=== PATIENT | male | born 1970 | race Caucasian/White ===

== ENCOUNTER 2017-05-18 09:31 | Emergency (ER) | payer OTHER ==
[~2017-05-18] VITALS: Ht 195.6 cm; Wt 113.0 kg
[2017-05-18 09:34] VITALS: Ht 195.6 cm; Wt 113.0 kg
[2017-05-18] MEDS ORDERED: SOD CHLORIDE 0.9% 500 ML IV STA (09:52)
[2017-05-18] MEDS ORDERED: HYDROmorphONE 1 MG/ML SYG IV STA (09:52)
[2017-05-18] MEDS ORDERED: ONDANSETRON 4 MG INJ ONE (09:54)
[2017-05-18] MEDS ORDERED: HYDROmorphONE 1 MG/ML SYG ONE (09:54)
[2017-05-18] MEDS ORDERED: ONDANSETRON 4 MG INJ IV STA (10:08)
--- NOTE | 2017-05-18 10:26 | RADRPT ---
PROCEDURE: XR Chest. CLINICAL INDICATION: Abdominal pain TECHNIQUE: Single frontal view of the chest was obtained COMPARISON: None FINDINGS: The heart and mediastinum are within normal limits. The lungs are clear. There is no pleural effusion or pneumothorax. RPTAT: AA IMPRESSION: No acute disease. .Onur Brock MD, Date Time Electronically viewed and signed by .Onur Brock MD, on 05/18/2017 10:26 .S/
[2017-05-18 10:30] LABS: BASOPHILS % 0.3 % (0.0-2.0); EOSINOPHILS # 0.1 10^3/ul (0.0-0.5); EOSINOPHILS % 2.4 % (0.0-7.0); HEMOGLOBIN 15.4 g/dl (14.0-18.0); LYMPHOCYTES # 1.8 10^3/ul (0.8-2.9); LYMPHOCYTES % 30.5 % (15.0-51.0); MEAN CORPUSCULAR HEMOGLOBIN 30.7 pg (29.0-33.0); MEAN CORPUSCULAR HGB CONC 34.2 g/dl (32.0-37.0); MEAN CORPUSCULAR VOLUME 89.6 fl (82.0-101.0); MEAN PLATELET VOLUME 9.7 fl (7.4-10.4); MONOCYTE # 0.5 10^3/ul (0.3-0.9); NEUTROPHIL # 3.3 10^3/ul (1.6-7.5); NEUTROPHILS % 56.9 % (39.0-77.0); PLATELET COUNT 269 10^3/UL (140-415); RED BLOOD COUNT 5.02 10^6/ul (4.70-6.10); RED CELL DISTRIBUTION WIDTH 12.5 % (11.5-14.5); WHITE BLOOD COUNT 5.9 10^3/ul (4.8-10.8)
[2017-05-18 10:49] LABS: INR 0.87; PROTIME 11.9 Sec (11.9-14.9); PT RATIO 0.9
[2017-05-18 10:50] LABS: ALANINE AMINOTRANSFERASE 39 IU/L (13-69); ALBUMIN 4.5 g/dl (3.3-4.9); ALKALINE PHOSPHATASE 70 IU/L (42-121); ANION GAP 15 (8-16); ASPARTATE AMINO TRANSFERASE 24 IU/L (15-46); BILIRUBIN,INDIRECT 0.4 mg/dl (0-1.1); BILIRUBIN,TOTAL 0.4 mg/dl (0.2-1.3); BLOOD UREA NITROGEN 12 mg/dl (7-20); CALCIUM 9.2 mg/dl (8.4-10.2); CARBON DIOXIDE 23 mmol/L (21-31); CHLORIDE 105 mmol/L (97-110); CREATININE 1.03 mg/dl (0.61-1.24); GLUCOSE 164 mg/dl (70-220); PARTIAL THROMBOPLASTIN TIME 35.6 Sec (25.0-35.0); POTASSIUM 4.3 mmol/L (3.5-5.1); SODIUM 139 mmol/L (135-144); TOTAL PROTEIN 7.7 g/dl (6.1-8.1)
[2017-05-18 11:09] LABS: TROPONIN-I < 0.012 ng/ml (0.00-0.12)
[2017-05-18] MEDS ORDERED: SOD CHLORIDE 0.9% 100 ML ONE (12:05)
[2017-05-18] MEDS ORDERED: IOHEXOL 300MG/ML 150 ML BTL ONE (12:05)
[2017-05-18 12:09] LABS: ADD UMIC YES; UR ASCORBIC ACID NEGATIVE (NEGATIVE); UR BILIRUBIN (Dip) NEGATIVE (NEGATIVE); UR BLOOD (Dip) 1+ mg/dL (NEGATIVE); UR CLARITY CLEAR (CLEAR); UR COLOR YELLOW (YELLOW); UR GLUCOSE (Dip) NEGATIVE (NEGATIVE); UR KETONES (Dip) NEGATIVE (NEGATIVE); UR LEUKOCYTE ESTERASE (Dip) NEGATIVE Leu/ul (NEGATIVE); UR NITRITE (Dip) NEGATIVE (NEGATIVE); UR RBC 1 /HPF (0-5); UR SPECIFIC GRAVITY (Dip) 1.014 (1.003-1.030); UR TOTAL PROTEIN (Dip) NEGATIVE (NEGATIVE); UR UROBILINOGEN (Dip) NEGATIVE (NEGATIVE)
[2017-05-18] MEDS ORDERED: HYDROmorphONE 0.5 MG/0.5 ML SYG IV STA (12:10)
[2017-05-18] MEDS ORDERED: HYDROmorphONE 0.5 MG/0.5 ML SYG ONE (12:12)
--- NOTE | 2017-05-18 12:53 | RADRPT ---
PROCEDURE: CT abdomen and pelvis with contrast. CLINICAL INDICATION: abdominal pain TECHNIQUE: CT scan of the abdomen and pelvis with contrast [facility] The patient was scanned after administration of 100 cc of Omnipaque-300 intravenous contrast. Sagittal and coronal reformatted images were obtained from the axial source images. One or more of the following dose reduction techniques were used: - Automated exposure control. - Adjustment of the mA and/or kV according to patient size. - Use of iterative reconstruction technique. DICOM images are available DLP 1569.8 mGycm. CTDIvol 23.8 mGy COMPARISON: None. FINDINGS: Lower thorax:The lung bases are clear. Liver: There is uniform enhancement of the liver with no focal lesion. The portal vein is intact wi thout thrombus. Biliary: The gallbladder is unremarkable without inflammation. No biliary dilatation. Pancreas: Homogeneous density and enhancement of the pancreas without visible focal lesion or cyst ic abnormality. There is no pancreatic ductal dilatation. Spleen: Unremarkable without enlargement or focal lesion. Adrenal Glands: The adrenal glands are within normal limits without mass. Urinary: The kidneys are symmetric in size bilaterally with symmetric enhancement. There are no vis ible renal or ureteral stones. There is no hydronephrosis. There is an exophytic hypo enhancing stru cture is denser than that of simple fluid measuring 21 mm. Gastrointestinal: There is no bowel obstruction or focal bowel inflammation. The appendix is unrema rkable. There is a mildly fecal filled colon.. There is diverticulosis without diverticulitis. Lymph nodes: There are no enlarged lymph nodes. Vascular: The aorta is unremarkable. Peritoneum/mesentery: No free fluid or free air. Reproductive organs: The prostate is grossly unremarkable. Musculoskeletal: Degenerative changes are seen in the lumbar spine with no acute osseous abnormalit y. There is a small fat containing left inguinal hernia. Other: None IMPRESSION: No evidence of bowel obstruction or inflammation. There is no appendicitis. There is a fecal filled colon. The There is diverticulosis without diverticulitis. Exophytic indeterminate renal structure could represent a hemorrhagic cyst. This can be confirmed wi th an MRI of the kidneys on a non emergent basis. There is a trace fat containing left inguinal hernia. RPTAT: AA .Po Schmidt MD, MD Date Time Electronically viewed and signed by .Po Schmidt MD, MD on 05/18/2017 12:53 .J/
[2017-05-18] MEDS ORDERED: KETOROLAC 30 MG INJ IV STA (13:22)
[2017-05-18] MEDS ORDERED: IBUP800T25 PO (13:52)
[2017-05-18] MEDS ORDERED: HYDR-906 PO (13:52)
--- NOTE | 2017-05-18 13:54 | ERD ---
ER Documentation Chief Complaint Chief Complaint rt side rib pain , felt something popped last night , sweating , anxious HPI 46-year-old male presenting with right-sided lower rib and upper abdominal pain. He states the pain started last night after he was having a coughing episode. He states he felt something "pop". Since then he has had continuous, 10 out of 10, nonradiating pain. He describes it as sharp, worse with inspiration and movement. No associated shortness of breath, hemoptysis, fevers , chills, nausea, vomiting, diarrhea, focal weakness or numbness. ROS All systems reviewed and are negative except as per history of present illness. Medications Home Meds Active Scripts Hydrocodone/Acetaminophen ([place] 5-325 Tablet) 1 Each Tablet, 1 TAB PO Q6H Y for PAIN, #7 TAB Prov:RUI CHARLTON MD 05/18/17 Ibuprofen* (Motrin*) 800 Mg Tab, 800 MG PO Q6H Y for PAIN AND OR ELEVATED TEMP, #30 TAB Prov:RUI CHARLTON MD 05/18/17 Allergies Allergies: Coded Allergies: No Known Allergy (Unverified , 05/18/17) PMhx/Soc Medical and Surgical Hx: pt denies Medical Hx, pt denies Surgical Hx Hx Alcohol Use: Yes Hx Substance Use: No Hx Tobacco Use: Yes Smoking Status: Never smoker FmHx Family History: No coronary disease, No diabetes Physical Exam Vitals Vital Signs Date Time Temp Pulse Resp B/P Pulse Ox O2 Delivery O2 Flow Rate FiO2 05/18/17 14:28 98.9 89 18 133/100 99 Room Air 05/18/17 13:00 98.5 80 18 139/97 99 Room Air 05/18/17 09:34 97.8 126 18 182/143 97 Physical Exam Const: Appears to be in significant distress secondary to pain, tearful Head: Atraumatic Eyes: Normal Conjunctiva ENT: Normal External Ears, Nose and Mouth. Neck: Full range of motion..~ No meningismus. Resp: Clear to auscultation bilaterally, equal breath sounds Cardio: Tachycardic with regular rhythm, no murmurs. 2+ distal pulses Abd: Soft, right upper quadrant tenderness, negative John's sign, negative McBurney's point tenderness, non distended. Pulsatile mass. Normal bowel sounds Skin: No petechiae or rashes Back: No midline or flank tenderness Ext: No cyanosis, or edema Neur: Awake and alert, strength and sensations intact in all 4 extremities Psych: Normal Mood and Affect Result Diagram: 05/18/17 1000 05/18/17 1000 Results 24 hrs Laboratory Tests Test 05/18/17 10:00 05/18/17 11:45 White Blood Count 5.910^3/ul Red Blood Count 5.0210^6/ul Hemoglobin 15.4g/dl Hematocrit 45.0% Mean Corpuscular Volume 89.6fl Mean Corpuscular Hemoglobin 30.7pg Mean Corpuscular Hemoglobin Concent 34.2g/dl Red Cell Distribution Width 12.5% Platelet Count 87643^3/UL Mean Platelet Volume 9.7fl Neutrophils % 56.9% Lymphocytes % 30.5% Monocytes % 9.0% Eosinophils % 2.4% Basophils % 0.3% Nucleated Red Blood Cells % 0.0/100WBC Neutrophils # 3.310^3/ul Lymphocytes # 1.810^3/ul Monocytes # 0.510^3/ul Eosinophils # 0.110^3/ul Basophils # 0.010^3/ul Nucleated Red Blood Cells # 0.010^3/ul Prothrombin Time 11.9Sec Prothrombin Time Ratio 0.9 INR International Normalized Ratio 0.87 Activated Partial Thromboplast Time 35.6Sec Sodium Level 139mmol/L Potassium Level 4.3mmol/L Chloride Level 105mmol/L Carbon Dioxide Level 23mmol/L Anion Gap 15 Blood Urea Nitrogen 12mg/dl Creatinine 1.03mg/dl Glucose Level 164mg/dl Calcium Level 9.2mg/dl Total Bilirubin 0.4mg/dl Direct Bilirubin 0.00mg/dl Indirect Bilirubin 0.4mg/dl Aspartate Amino Transf (AST/SGOT) 24IU/L Alanine Aminotransferase (ALT/SGPT) 39IU/L Alkaline Phosphatase 70IU/L Troponin I < 0.012ng/ml Total Protein 7.7g/dl Albumin 4.5g/dl Globulin 3.20g/dl Albumin/Globulin Ratio 1.40 Lipase 42U/L Urine Color YELLOW Urine Clarity CLEAR Urine pH 6.0 Urine Specific [place] 1.014 Urine Ketones NEGATIVEmg/dL Urine Nitrite NEGATIVEmg/dL Urine Bilirubin NEGATIVEmg/dL Urine Urobilinogen NEGATIVEmg/dL Urine Leukocyte Esterase NEGATIVELeu/ul Urine Microscopic RBC 1/HPF Urine Microscopic WBC 0/HPF Urine Hemoglobin 1+mg/dL Urine Glucose NEGATIVEmg/dL Urine Total Protein NEGATIVEmg/dl Current Medications Medications (Trade) Dose Ordered Sig/Cha[place]y Route PRN Reason Start Time Stop Time Status Last Admin Dose Admin Hydromorphone HCl 1 mg 1 mg ONCE STAT IV 05/18/17 09:52 05/18/17 09:53 DC 05/18/17 10:04 Sodium Chloride (NS) 500 ml @ 500 mls/hr Q1H STAT IV 05/18/17 09:52 05/18/17 10:51 DC 05/18/17 10:31 Ondansetron HCl (Zofran Inj) 4 mg STK-MED ONCE .ROUTE 05/18/17 09:54 05/18/17 09:55 DC Hydromorphone HCl (Dilaudid) 1 mg STK-MED ONCE .ROUTE 05/18/17 09:54 05/18/17 09:55 DC Ondansetron HCl (Zofran Inj) 4 mg ONCE STAT IV 05/18/17 10:08 05/18/17 10:10 DC 05/18/17 10:31 Iohexol 150 ml 150 ml STK-MED ONCE .ROUTE 05/18/17 12:05 05/18/17 12:06 DC Sodium Chloride (NS) 100 ml @ ud STK-MED ONCE .ROUTE 05/18/17 12:05 05/18/17 12:06 DC Hydromorphone HCl (Dilaudid) 0.5 mg ONCE STAT IV 05/18/17 12:10 05/18/17 12:11 DC 05/18/17 12:14 Hydromorphone HCl (Dilaudid) 0.5 mg STK-MED ONCE .ROUTE 05/18/17 12:12 05/18/17 12:13 DC Ketorolac Tromethamine (Toradol) 30 mg ONCE STAT IV 05/18/17 13:22 05/18/17 13:23 DC 05/18/17 13:48 Procedures/MDM EMERGENT LABS AND DIAGNOSTIC STUDIES: Lab Results above were reviewed and interpreted by me. CBC, CMP, lipase, troponin within normal limits urinalysis with 1+ hemoglobin 12-lead EKG was interpreted by Ana Paula Charlton MD: Normal Sinus Rhythm Normal axis Normal intervals No acute ST or T wave changes suggestive of acute ischemia or STEMI. Radiology Results as interpreted by Radiology below were reviewed by Lia Charlton MD: Chest x-ray shows no acute abnormalities CT abdomen and pelvis: FINDINGS: Lower thorax:The lung bases are clear. Liver: There is uniform enhancement of the liver with no focal lesion. The portal vein is intact without thrombus. Biliary: The gallbladder is unremarkable without inflammation. No biliary dilatation. Pancreas: Homogeneous density and enhancement of the pancreas without visible focal lesion or cystic abnormality. There is no pancreatic ductal dilatation. Spleen: Unremarkable without enlargement or focal lesion. Adrenal Glands: The adrenal glands are within normal limits without mass. Urinary: The kidneys are symmetric in size bilaterally with symmetric enhancement. There are no visible renal or ureteral stones. There is no hydronephrosis. There is an exophytic hypo enhancing structure is denser than that of simple fluid measuring 21 mm. Gastrointestinal: There is no bowel obstruction or focal bowel inflammation. The appendix is unremarkable. There is a mildly fecal filled colon.. There is diverticulosis without diverticulitis. Lymph nodes: There are no enlarged lymph nodes. Vascular: The aorta is unremarkable. Peritoneum/mesentery: No free fluid or free air. Reproductive organs: The prostate is grossly unremarkable. Musculoskeletal: Degenerative changes are seen in the lumbar spine with no acute osseous abnormality. There is a small fat containing left inguinal hernia. Other: None IMPRESSION: No evidence of bowel obstruction or inflammation. There is no appendicitis. There is a fecal filled colon. The There is diverticulosis without diverticulitis. Exophytic indeterminate renal structure could represent a hemorrhagic cyst. This can be confirmed with an MRI of the kidneys on a non emergent basis. There is a trace fat containing left inguinal hernia. RPTAT: AA .Po Schmidt MD, MD Date Time Electronically viewed and signed by .Po Schmidt MD, MD on 05/18/2017 12:53 Initial Nursing notes reviewed. Previous Medical Records requested via the Electronic Health Record. EMERGENCY DEPARTMENT COURSE / MEDICAL DECISION MAKING: Patient is presenting with sudden onset right upper quadrant pain since last night associated with coughing. Initially when he presented he was tachycardic and hypertensive. He was given IV antiemetics and analgesics. Workup did not reveal any specific etiology of pain. He was noted to have a right renal possibly hemorrhagic contained cyst, unlikely the cause of his pain. No other abnormalities are seen on the CT. Patient's vitals improved with pain control and IV fluids. At this moment the etiology of the abdominal pain is unknown. The patients vitals have been noted and are currently afebrile and hemodynamically stable. The workup, physical exam and observation period do not indicate a serious cause to the pain. CT was done and the patient does not appear to have appendicitis, diverticular disease, intestinal obstruction, vascular abnormality or other life threatening condition. The patients symptoms have improved while in the ED and the patient remains hemodynamically stable. Patient was able to tolerate PO. The current assessment has been explained to the patient including the fact that the etiology of the pain cannot be ruled out with certainty. Patient was advised that in the event this is early in the process of a more serious condition they may expect their symptoms to worsen and if so to return to the emergency department immediately. Patient was advised to follow up with primary care physician as soon as possible for re-evaluation within the next 1- 2 days. Also advised to follow-up with PCP to get an outpatient workup for his right renal hemorrhagic cyst. I given him a copy of his CT scan results. All of the patients questions were answered. Patient verbalized understanding of plan and agrees. Advised to return to the ER for reevaluation within 12 hours if symptoms worsen. Patient's blood pressure was elevated (>120/80) but appears stable without evidence of hypertensive emergency or urgency. The patient was counseled about the risks of hypertension and urged to pursue outpatient monitoring and therapy within a week with their primary care physician. Departure Diagnosis: Primary Impression: Right upper quadrant abdominal pain Condition: Stable Patient Instructions: Abdominal Pain Additional Instructions: The reason for your pain at this time is not clear. All your tests today did not show anything that would explain your pain. We did see a small cyst on your right kidney which needs further testing, however I do not think that this is what is causing your pain. Follow-up with your regular doctor as you will need an MRI of the kidneys to further evaluate this cyst. If your symptoms are worsening within the next 12 hours, return to the ER for evaluation. Otherwise see her primary care doctor in 1-2 days. RUI CHARLTON MD May 18, 2017 13:54
[2017-05-18 14:28] VITALS: BP 133/100; PULSE 89; RESP 18; TEMP 98.9
== END 2017-05-18 14:30 | disposition home or self-care (01) ==
LOC: E/R 09:31
DX: R10.11 Right upper quadrant pain (principal); Z87.891 Personal history of nicotine dependence
CPT/HCPCS: 36415; 71010; 74177; 80053; 81001; 83690; 84484; 85025; 85610; 85730; 93005; 96374; 96375; 96376; J1170; J1885; J2405; J7040; Q9967; Z7502; Z7610